=== PATIENT | female | born 1955 | race Caucasian/White ===

== ENCOUNTER → 2021-06-11 | Day surgery (SDC) | payer MEDICARE, OTHER ==
[~2021-06-11] VITALS: Ht 170.2 cm; Wt 77.2 kg
[~2021-06-11] MED LIST: BUPROPION XL300 MG PO; BYSTOLIC10 MG PO; CELEBREX200 MG PO; ESTRACE1 MG PO; NEURONTIN300 MG PO; NYQUIL PO; PROGESTERONE100 MG PO; SINGULAIR10 MG PO
[2021-06-11 07:01] LABS: BUN/CREAT RATIO (CALC) 23.7 RATIO; CREATININE 0.93 mg/dL (0.51-0.95); POTASSIUM 4.2 mmol/L (3.5-5.1)
== END | disposition home or self-care (01) ==
LOC: FAS 05:59
PROVIDERS: Anesthesiology
DX: M65.312 Trigger thumb, left thumb (principal); M65.842 Other synovitis and tenosynovitis, left hand; I10 Essential (primary) hypertension; Z79.899 Other long term (current) drug therapy
CPT/HCPCS: 36415; 80048; J1100; J1885; J2250; J2405; J2704; J3010; J7120